=== PATIENT | male | born 1975 | race Caucasian/White ===

== ENCOUNTER → 2020-06-12 12:01 | Outpatient (BNVA) | payer SELFPAY | PROVIDERS: Visit Provider Nurse Practitioner Family | DX: A64 Unspecified sexually transmitted disease (principal); Z20.2 Contact with and (suspected) exposure to infections with a predominantly sexual mode of transmission | CPT/HCPCS: 87491; 87591 ==

== ENCOUNTER 2021-08-08 14:21 | Emergency (ER) | payer SELFPAY ==
[2021-08-08 14:34] VITALS: BP 136/89; PULSE 86; RESP 16; TEMP 36.6; O2SAT 97; BMI 31.1
--- NOTE | 2021-08-08 15:34 | CT_ITS ---
WS: [id number] CT HEAD NONCONTRAST HISTORY: persistent gould today with emesis TECHNIQUE: Contiguous axial imaging performed through the brain in 2.5 mm imaging. Bone and soft tiss ue windows. Sagittal and coronal reformats reviewed. All CT scans at [facility] use at least one of these dose optimization techniques: automated exposure control; mA and/or kV adjustment per pa tient size (includes targeted exams where dose is matched to clinical indication); or iterative recon struction. DLP: 991.08 mGy.cm COMPARISON: None available. No acute intracranial hemorrhage, midline shift or mass effect. No atrophy or prior infarcts or herniation. Ventricles: Normal size with no hydrocephalus. Paranasal sinuses: As visualized are clear. Mastoid air cells: Well pneumatized. Calvarium and scalp: Skull is intact with no soft tissue edema or swelling. LEFT globe prosthesis. CT/CT head wo con* [id number] IMPRESSION: Negative head CT.
--- NOTE | 2021-08-08 15:36 | W.ED.HA ---
HPI - Headache General: Chief Complaint: Headache Stated Complaint: h/a; dizzy; nausea Time Seen by Provider: 08/08/21 14:55 Source: patient and family (spouse) Mode of arrival: ambulatory Limitations: no limitations History of Present Illness: This patient presents to our emergency department accompanied by his . He is here primarily at her urging because of persistent headache and repetitive vomiting today. He states that he developed a throbbing pounding headache yesterday evening and is persisted through the night and as well as today. He states that it is seems to be retro-orbital in nature and unchanged and position or intensity. He states he has had several episodes of emesis today without any significant abdominal pain. He denies any weakness, difficulty with speech etc. He does get some hand tingling sometimes which is positional and it similar to that which occurs sometimes with long over the road driving as well as other positions. He denies any fevers or chills, head trauma etc. He works as a hvac mechanic. He does not drink alcohol and uses chewing tobacco. There is no one ill at home. 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 He apparently had trauma to his left eye when he was a small child and lost vision in that eye but he did not present as a problem until the 2001 episode. He denies any facial pain, tooth pain etc. He did he states that he has not been exposed to any infectious disease. MD elicited complaint: headache Onset description: gradually Location: retro-orbital Severity: moderate Quality & Timing: throbbing and similar to previous headaches Relieving factors: nothing Associated symptoms: Reports vomiting; Deny chest pain, confusion, fever(s), nausea or rash Treatments prior to arrival: none Review of Systems Const: Denies: fever(s), chills or body aches Eyes: Denies: change in vision, blurry vision or seeing flashes ENMT: Denies: throat pain, odynophagia, nasal congestion or sinus pain Card: Denies: chest pain, palpitations or irregular heart rhythm Resp: Denies: dyspnea, productive cough or non-productive cough GI: Reports: vomiting; Denies: abdominal pain, nausea or diarrhea : Denies: flank pain, difficulty urinating, dysuria or urinary frequency Musc: Denies: neck pain, back pain, extremity pain or extremity swelling Skin/Breast: Denies: rash Neuro: Reports: headache(s) and numbness in extremities; Denies: weakness in extremities, dizziness, vertigo, confusion or Slurred speech present Psych: Denies: anxiety or depression Jacob/Lymph: Denies: easy bruising or easy bleeding All/Imm: Denies: urticaria or throat swelling PFSH ED PFSH: Social History Smoking and tobacco status: current every day smoker smokeless tobacco Smokeless tobacco user: chewing tobacco Quit status (tobacco): not considering quitting Second hand smoke exposure: No Alcohol intake: never Desire information about alcohol rehabilitation?: No Desire information about substance/drug rehabilitation?: No Physical Exam Narrative: EXAM NARRATIVE: Patient is alert interactive and cooperative and appears to be in no acute distress. Const: COMMON NORMALS: no acute distress, average body habitus, patient oriented x3, healthy appearing and alert GENERAL APPEARANCE: cooperative, comfortable and well developed HENMT: COMMON NORMALS: normocephalic, atraumatic, external ears normal, TM's normal bilaterally, Normal nasal mucous membranes and turbinates present and moist oral mucous membranes HEAD & SCALP: normocephalic and atraumatic FACE & SINUS: normal facial exam, sinuses nontender and face symmetric NOSE: Normal nasal mucous membranes and turbinates present EXTERNAL EAR: Yes external ears normal TYMPANIC MEMBRANE: TM's normal bilaterally Eye: OTHER: Ocular examination reveals he has a left eye prosthesis which with normal periorbital appearance and evaluation. His right eye has all extraocular motions intact. Pupils midposition and reactive to light. Cornea clear sclera normal. Neck/C-Spine: COMMON NORMALS: full ROM, no lymphadenopathy, supple, no meningeal signs and no JVD OTHER: He has tenderness along the left superior trapezius border. Chest: COMMONS NORMALS: normal inspection of the chest and normal palpation of entire chest wall Resp: COMMON NORMALS: normal respiratory effort, No retractions, No use of accessory muscles and clear to auscultation bilaterally AUSCULTATION: clear to auscultation bilaterally Cardio: COMMON NORMALS: no JVD, regular rate, regular rhythm, No murmurs present (Cardio) and Peripheral pulses 2+ throughout RATE: regular rate RHYTHM: regular rhythm PERIPHERAL PULSES: Peripheral pulses 2+ throughout GI: COMMON NORMALS: Normal to inspection, nondistended, normoactive bowel sounds present, Soft to palpation, non-tender and no masses PALPATION: Yes Soft to palpation : COMMON NORMALS: Yes no CVA tenderness BLADDER/KIDNEY EXAM: Yes no CVA tenderness Back/Pelvis: COMMON NORMALS: no CVA tenderness, thoracic and lumbar spine normal to inspection, no thoracic nor lumbar tenderness, thoraco-lumbar ROM normal and straight leg raise negative bilaterally Extremity: COMMON NORMALS: normal to inspection, full ROM, capillary refill normal, no calf tenderness and no pedal edema Neuro: COMMON NORMALS: patient oriented x3, moves all extremities, no focal motor deficits and no sensory deficits noted SENSORIUM/ORIENTATION: Yes alert MENINGEAL SIGNS: Yes no meningeal signs CRANIAL NERVES: Yes CN normal except as noted GAIT: Yes Normal gait present OTHER: He has reproducible finger paresthesias with elevation of either arm to approximately 80 degrees. Psych: COMMON NORMALS: mental status grossly normal, cooperative, normal affect and speech normal SPEECH: Yes normal speech Skin: COMMON NORMALS: no rashes or lesions noted and turgor normal GENERAL SKIN EXAM: no rashes or lesions noted and turgor normal Course Reevaluation(s): Reevaluation #1: Patient states he feels markedly better. He states his headache is almost completely resolved. He denies any nausea vomiting or any other symptoms at this time. Repeat evaluation reveals him to be alert comfortable interacting with spouse and watching television. Speech is normal. No change in his clinical examination to include no acute or focal findings on repeat evaluation. Time: 18:14 Vital Signs: Vital signs: Vital Signs Temperature 97.9 F 08/08/21 14:34 Pulse Rate 86 08/08/21 14:34 Respiratory Rate 16 08/08/21 14:34 Blood Pressure 136/89 08/08/21 14:34 Pulse Oximetry 97 08/08/21 14:34 MDM - Headache Medical Decision Making Patient's evaluation here is reassuring and that it does not discern any acute or ongoing emergency medical condition. No evidence of intracranial hemorrhage subarachnoid bleed, other obvious pathology on noncontrasted CT scan. His laboratories are reassuring. He does have slight elevation in creatinine with a borderline GFR for age and sex. He is unaware of any prior creatinine levels and I shared this with both he and his spouse. His current presentation certainly does not suggest infection etc. but certainly given current clinical picture suggest likely a mixed migraine type headache with persistent vomiting. Certainly nothing to suggest anything more worrisome or ominous at this time. I shared these findings and their implications and limitations of both patient and spouse. He is stable at this time and desires to be discharged and I think this is appropriate at this time. We also discussed return precautions in detail Medical Records I reviewed the patient's medical records. Lab Data I reviewed the patient's lab results. : 08/08/21 15:18 08/08/21 15:[address] 08/08/21 15:34 IMPRESSION: Negative head CT. Laboratory Results WBC 6.4 10^3/uL (4.0-10.0) 08/08/21 15:18 RBC 4.74 10^6/uL (4.1-5.3) 08/08/21 15:18 Hgb 15.2 g/dL (11.7-16.6) 08/08/21 15:18 Hct 42.0 % (42.0-52.0) 08/08/21 15:18 MCV 88.6 fl (80-94) 08/08/21 15:18 MCH 32.1 pg (28.0-34.0) 08/08/21 15:18 MCHC 36.2 g/dL (30.0-36.0) H 08/08/21 15:18 RDW 12.5 % (12.1-15.1) 08/08/21 15:18 Plt Count 234 10^3/cmm (130-400) 08/08/21 15:18 MPV 10.7 fL (7.4-10.4) H 08/08/21 15:18 Neut % (Auto) 62.7 % 08/08/21 15:18 Lymph % (Auto) 27.5 % 08/08/21 15:18 [facility] [place] % (Auto) 6.6 % 08/08/21 15:18 Eos % (Auto) 2.4 % 08/08/21 15:18 Baso % (Auto) 0.5 % 08/08/21 15:18 Neut # (Auto) 4.00 10^3/uL (1.8-7.7) 08/08/21 15:18 Lymph # (Auto) 1.8 10^3/uL (0.8-4.8) 08/08/21 15:18 [facility] [place] [facility] # (Auto) 0.4 10^3/uL (0.2-0.9) 08/08/21 15:18 Eos # (Auto) 0.2 10^3/uL (0.0-0.8) 08/08/21 15:18 Baso # (Auto) 0.0 10^3/uL (0.0-0.1) 08/08/21 15:18 Nucleated RBC % (auto) 0 % 08/08/21 15:18 Nucleated RBCs # 0.0 /100WBC 08/08/21 15:18 Sodium 139 mmol/L (136-145) 08/08/21 15:18 Potassium 3.9 mmol/L (3.5-5.1) 08/08/21 15:18 Chloride 103 mmol/L (98-107) 08/08/21 15:18 Carbon Dioxide 22 mmol/L (22-29) 08/08/21 15:18 Anion Gap 17.9 (5-19) 08/08/21 15:18 BUN 22 mg/dL (6-20) H 08/08/21 15:18 Creatinine 1.3 mg/dL (0.7-1.2) H 08/08/21 15:18 GFR Calculation 59.7 mL/min (90-130) L 08/08/21 15:18 Glucose 93 mg/dL (65-115) 08/08/21 15:18 Calculated Osmolality 291 mOsm/kg (285-295) 08/08/21 15:18 Calcium 9.3 mg/dL (8.5-10.5) 08/08/21 15:18 Total Bilirubin 0.6 mg/dL (0.15-1.2) 08/08/21 15:18 AST 24 U/L (0-40) 08/08/21 15:18 ALT 30 U/L (0-41) 08/08/21 15:18 Alkaline Phosphatase 92 IU/L (40-130) 08/08/21 15:18 Total Protein 7.1 g/dL (6.6-8.7) 08/08/21 15:18 Albumin 4.8 g/dL (3.5-5.2) 08/08/21 15:18 Globulin 2.3 g/dL (1.3-4.6) 08/08/21 15:18 Discharge Plan Discharge Patient Disposition: Home Clinical Impression: Headache Condition: Stable Prescriptions: No Action Aleve 220 mg Capsule 440 mg PO DAILY 0RF Discharge Orders: Discharge ED (Routine); Ordered 08/08/21 Ordered By: Eb Navarro Discharge Diet: Usual diet Discharge Activity: Resume usual activity Patient Instructions: Opioid Safety Activity Restrictions/Additional Instructions: If you develop any new or persistent symptoms such as, fever, headache, weakness or any concerns return to this or the nearest emergency department immediately. Coding Level of Care Code ED Healthcare Educator for Jerod Fwd Exam Comprehensive
[2021-08-08] MEDS: sodium chloride 0.9% 1,000 ML 999 ML IV (16:10)
[2021-08-08 16:11] LABS: Basophils % 0.5 %; Eosinophils # 0.2 10^3/uL (0.0-0.8); Eosinophils % 2.4 %; Hemoglobin 15.2 g/dL (11.7-16.6); Lymphocytes # 1.8 10^3/uL (0.8-4.8); Lymphocytes % 27.5 %; Mean Corpuscular HGB Conc 36.2 g/dL (30.0-36.0); Mean Corpuscular Hemoglobin 32.1 pg (28.0-34.0); Mean Corpuscular Volume 88.6 fl (80-94); Mean Platelet Volume 10.7 fL (7.4-10.4); Monocytes # 0.4 10^3/uL (0.2-0.9); Monocytes % 6.6 %; Neutrophils % 62.7 %; Nucleated Red Blood Cells % 0 %; Platelet Count 234 10^3/cmm (130-400); Red Blood Count 4.74 10^6/uL (4.1-5.3); Red Cell Distribution Width 12.5 % (12.1-15.1); White Blood Count 6.4 10^3/uL (4.0-10.0)
[2021-08-08 16:25] LABS: Alanine Aminotransferase 30 U/L (0-41); Albumin Level 4.8 g/dL (3.5-5.2); Alkaline Phosphatase 92 IU/L (40-130); Anion Gap 17.9 (5-19); Aspartate Amino Transferase 24 U/L (0-40); Blood Urea Nitrogen 22 mg/dL (6-20); Calcium 9.3 mg/dL (8.5-10.5); Carbon Dioxide 22 mmol/L (22-29); Chloride 103 mmol/L (98-107); Globulin 2.3 g/dL (1.3-4.6); Glomerular Filtration Rate 59.7 mL/min (90-130); Glucose 93 mg/dL (65-115); Osmolality Calculated 291 mOsm/kg (285-295); Potassium 3.9 mmol/L (3.5-5.1); Sodium 139 mmol/L (136-145); Total Bilirubin 0.6 mg/dL (0.15-1.2); Total Protein 7.1 g/dL (6.6-8.7)
[2021-08-08] MEDS: metoclopramide 5 mg/mL SDV 2 mL 10 MG IVP (17:13)
[2021-08-08] MEDS: diphenhydrAMINE 50 mg/mL SDV 1mL 12.5 MG IVP (17:16)
[2021-08-08 18:50] VITALS: BP 114/66; PULSE 72; RESP 19; O2SAT 99
== END 2021-08-08 18:43 | disposition home or self-care (01) ==
PROVIDERS: Emergency Provider Emergency Medicine
DX: R51.9 Headache, unspecified (principal); F17.220 Nicotine dependence, chewing tobacco, uncomplicated
CPT/HCPCS: 70450; 80053; 85025; 96361; 96374; 96375; 99284; J1200; J2765; J7030